=== PATIENT | female | born 1975 ===

== ENCOUNTER 2021-06-09 11:26 | Outpatient (CLI) | payer BC ==
--- NOTE | 2021-06-09 14:01 | XRAY Report ---
PROCEDURE: Hand 3 View LT INDICATIONS: CONTUSION OF L HAND TECHNIQUE: 3 views of the hand(s) acquired. COMPARISON: None FINDINGS: BONES: Mildly comminuted fracture of the fourth middle phalanx. The remaining visualized osseous stru ctures appear maintained. SOFT TISSUES: Edema about the fracture site. IMPRESSION: 1.Mild comminuted fracture of the fourth middle phalanx. Reviewed by: Good Toney MD on 06/09/2021 2:00 PM [facility] Approved by: Good Toney MD on 06/09/2021 2:00 PM [facility] Station ID: [id number]
== END 2021-06-09 23:59 ==
LOC: DI.N 11:26
PROVIDERS: ATTEND Nurse Practitioner
DX: S60.222A Contusion of left hand, initial encounter (principal); S62.625A Displaced fracture of middle phalanx of left ring finger, initial encounter for closed fracture